=== PATIENT | female | born 1955 | race Caucasian/White ===

== ENCOUNTER → 2018-04-04 | Outpatient (CLI) | payer OTHER ==
[~2018-04-04] MED LIST: AZIT-1 PO; CALC-845 PO; CALC-852 PO; ESOM10SU2 PO; ESOM40CA42 PO; ESZ3PT PO; FERR325T24 PO; IBU200 PO; MAGN400C PO; MULT-820 PO; OMEG-11 PO; RANI-366 PO; SIMV-49 PO; SIMV10TA98 PO; [UNRECOGNIZED DRUG - CODE] PO; [UNRECOGNIZED DRUG - CODE] PO; [UNRECOGNIZED DRUG - SUPPLY]
--- NOTE | 2018-04-06 10:41 | RADIOLOGY IMAGING REPORT ---
[place] [facility] [place] NAME: ALBERTO CONROY : [id number] MR: [id number] V: [id number] EXAM DATE: [id number] ORDERING PHYSICIAN: CAROLE YIP TECHNOLOGIST: Tammie Negro PROCEDURE:BILATERAL DIAGNOSTIC DIGITAL MAMMOGRAM WITH CAD ASSISTED INTERPRETATION & 3D TOMOSYNTHESIS COMPARISON:Prior mammograms 09/30/17, 03/16/17, 08/30/16, 02/27/16, 02/12/16, 01/29/15 INDICATIONS:6 MONTH FOLLOW-UP FINDINGS: Mildly heterogeneous fibroglandular tissue is seen throughout the breasts. The parenchymal pattern has remained stable allowing for difference in mammographic technique & patient positioning. The small grouping of calcifications in the medial inferior portion of the Right breast appear much less prominent and appear to have coalesced into a microcalcification. There is no demonstration of malignant appearing mass, malignant appearing calcification or other secondary sign of malignancy in either breast. DIAGNOSTIC CATEGORY 2--BENIGN FINDING. RECOMMENDATIONS: ROUTINE MAMMOGRAM AND CLINICAL EVALUATION. IMPRESSION: BIRADS 2: Benign finding No significant abnormality is seen. Dictated by: Joan Marie M.D. on 04/04/2018 at 15:34 Transcribed by: CM on 04/05/2018 at 8:38 Approved by: Joan Marie M.D. on 04/06/2018 at 10:40 [facility]
== END ==
LOC: US 01:24
PROVIDERS: ATTEND Internal Medicine
DX: R92.1 Mammographic calcification found on diagnostic imaging of breast (principal)
CPT/HCPCS: 77062; 77066

== ENCOUNTER 2019-01-30 01:14 | Emergency (ER) | payer MEDICARE, OTHER ==
--- NOTE | 2019-01-30 01:39 | ER Report ---
History and Physical Time Seen By MD: 01:39 Hx. of Stated Complaint: PT REPORTS FEELING IRRITABLE TODAY. PT HAS BEEN CHECKIN BP AT HOME WITH HIGHEST BEING 158/106. HPI/ROS CHIEF COMPLAINT: Concerns about blood pressure HISTORY OF PRESENT ILLNESS: This is a 63-year-old female. She states that she felt irritable all day. Tonight could not relax. Tested her blood pressure several times and the bottom number was very high, in the 90s and over 100. Has mild headache. No chest pain. No shortness of breath. No nausea or vomiting. Normal bowel and bladder function. No vision changes. No dizziness or near syncope feeling. No musculoskeletal pain. Allergies: Coded Allergies: Penicillins (Verified Allergy, Severe, ANAPHYLAXIS, 01/30/19) Sulfa (Sulfonamide Antibiotics) (Verified Allergy, Intermediate, RASH, 01/30/19) Home Meds Active Scripts Lisinopril (LISINOPRIL) 10 Mg Tablet, 10 MG PO QDAY, #30 TAB 0 Refills Prov:JEMAL FERNANDES MD 01/30/19 Eszopiclone (LUNESTA) 3 Mg Tablet, 1 TAB PO HS PRN for sleep, #90 TAB 1 Refill Prov:CAROLE YIP MD 08/15/18 Simvastatin (SIMVASTATIN) 20 Mg Tablet, 1 TAB PO HS, #30 TAB 3 Refills Prov:CAROLE YIP MD 02/28/18 Reported Medications Cholecalciferol (Vitamin D3) (VITAMIN D3) 3,000 Unit Tablet, 1 TAB PO QDAY 08/09/17 [TAP appliance] No Conflict Check, HS sleep apnea 09/08/16 Ranitidine Hcl (ZANTAC) 150 Mg Tablet, 1 TAB PO QDAY PRN for acid reflux, TAB 02/04/16 [place]-3 Fatty Acids/Fish Oil (FISH OIL 1,000 MG CAPSULE) 1 Each Capsule, 1 CAP PO QDAY 01/28/15 Calcium Carbonate/Vitamin D3 (CALCIUM + VITAMIN D TABLET) 1 Each Tablet, 1 TAB PO QDAY 01/28/15 Multivitamins (Multivitamin) 1 Tab Tablet, 1 TAB PO QDAY 03/04/08 Discontinued Reported Medications Magnesium Oxide (MAGNESIUM) 400 Mg Capsule, 1 CAP PO QDAY, CAPSULE 02/23/18 Reviewed Nurses Notes: Yes Smoking Status: Former Smoker Exposure to Second Hand Smoke?: Yes Constitutional Vital Sign - Last 24 Hours 01/30/19 01/30/19 01/30/19 01/30/19 01:29 01:31 01:44 01:55 Temp 97.6 Pulse 81 85 Resp 16 B/P (MAP) 156/82 (106) 156/82 151/98 (115) Pulse Ox 94 91 O2 Delivery Room Air 01/30/19 01/30/19 01/30/19 01/30/19 01:59 02:00 02:10 02:14 Pulse 72 76 B/P (MAP) 140/103 (115) 149/105 (120) Pulse Ox 91 93 01/30/19 01/30/19 01/30/19 01/30/19 02:20 02:30 02:54 03:00 B/P (MAP) 127/94 (105) 142/101 (115) 149/103 (118) 155/86 (109) 01/30/19 01/30/19 01/30/19 01/30/19 03:14 03:30 03:44 03:59 Pulse 72 72 74 B/P (MAP) 155/103 (120) Pulse Ox 91 92 90 01/30/19 01/30/19 04:00 04:14 B/P (MAP) 153/110 (124) Pulse Ox 93 Physical Exam General Appearance: The patient is alert. No acute distress. Eyes: Pupils are equal, round. Reactive to light. No pallor, injection or icterus. Extraocular movements are intact. ENT: Mucous membranes are moist. Normal oral mucosa. Posterior oropharynx is normal. Normal nasal mucosa. Normal tympanic membranes and canals. Neck: Supple and non tender. No lymphadenopathy. Respiratory: Lungs are clear to auscultation. Cardiovascular: Regular rate and rhythm. No murmurs, gallops or rubs. Normal capillary refill. Gastrointestinal: Abdomen is soft and non tender. Nondistended. Normal active bowel sounds. Neurological: Alert and oriented x3. Cranial nerves II through XII show no acute deficits on my exam. No focal neurologic deficits in the extremities. Skin: Warm and dry. No rashes. Musculoskeletal: Extremities are nontender. No tenderness in palpation of the cervical, thoracic and lumbar spine. DIFFERENTIAL DIAGNOSIS: After history and physical exam, differential diagnosis was considered for elevated blood pressure with a mild headache. We'll check labs, EKG, x-ray and CT scan Medical Decision Making Data Points Result Diagram: 01/30/19 0227 01/30/197 Laboratory Hematology Test 01/30/19 02:27 01/30/19 03:25 Red Blood Count 5.41 M/uL (4.17-5.56) Mean Corpuscular Volume 89.9 fL (80.0-96.0) Mean Corpuscular Hemoglobin 30.2 pg (26.0-33.0) Mean Corpuscular Hemoglobin Concent 33.6 g/dL (32.0-36.0) Red Cell Distribution Width 13.1 % (11.5-14.5) Mean Platelet Volume 9.1 fL (7.2-11.1) Neutrophils (%) (Auto) 58.2 % (39.4-72.5) Lymphocytes (%) (Auto) 25.7 % (17.6-49.6) Monocytes (%) (Auto) 12.6 % (4.1-12.4) Eosinophils (%) (Auto) 2.7 % (0.4-6.7) Basophils (%) (Auto) 0.8 % (0.3-1.4) Nucleated RBC Relative Count (auto) 0.1 /100WBC Neutrophils # (Auto) 4.3 K/uL (2.0-7.4) Lymphocytes # (Auto) 1.9 K/uL (1.3-3.6) Monocytes # (Auto) 0.9 K/uL (0.3-1.0) Eosinophils # (Auto) 0.2 K/uL (0.0-0.5) Basophils # (Auto) 0.1 K/uL (0.0-0.1) Nucleated RBC Absolute Count (auto) 0.01 K/uL Sodium Level 141 mmol/L (137-145) Potassium Level 4.0 mmol/L (3.5-5.0) Chloride Level 103 mmol/L (98-107) Carbon Dioxide Level 28 mmol/L (22-31) Blood Urea Nitrogen 10 mg/dl (7-18) Creatinine 1.00 mg/dl (0.52-1.04) Glomerular Filtration Rate Calc 55.6 Random Glucose 96 mg/dl (75-110) Calcium Level 9.9 mg/dl (8.4-10.2) Total Bilirubin 0.5 mg/dl (0.2-1.3) Aspartate Amino Transf (AST/SGOT) 24 U/L (0-35) Alanine Aminotransferase (ALT/SGPT) 26 U/L (0-56) Alkaline Phosphatase 88 U/L (0-126) Troponin I < 0.012 ng/ml Total Protein 7.7 g/dl (6.3-8.2) Albumin 4.4 g/dl (3.5-5.0) Urine Color Yellow Urine Clarity Clear Urine pH 5.0 pH (4.8-9.5) Urine Specific [place] 1.012 Urine Protein Negative mg/dL (NEGATIVE) Urine Glucose (UA) Negative mg/dL (NEGATIVE) Urine Ketones Negative mg/dL (NEGATIVE) Urine Blood Negative (NEGATIVE) Urine Nitrite Negative (NEGATIVE) Urine Bilirubin Negative (NEGATIVE) Urine Urobilinogen Negative mg/dL (0.2-1.9) Urine Leukocyte Esterase Negative (NEGATIVE) Urine RBC <1 /HPF (0-2/HPF) Urine WBC <1 /HPF (0-5/HPF) Urine Squamous Epithelial Cells Few /LPF (</=FEW) Urine Bacteria Negative /HPF (NONE-FEW) Urine Mucus None /HPF (NONE-FEW) Chemistry Test 01/30/19 02:27 01/30/19 03:25 White Blood Count 7.4 k/uL (4.5-11.0) Red Blood Count 5.41 M/uL (4.17-5.56) Hemoglobin 16.3 g/dL (12.0-16.0) Hematocrit 48.6 % (34.0-47.0) Mean Corpuscular Volume 89.9 fL (80.0-96.0) Mean Corpuscular Hemoglobin 30.2 pg (26.0-33.0) Mean Corpuscular Hemoglobin Concent 33.6 g/dL (32.0-36.0) Red Cell Distribution Width 13.1 % (11.5-14.5) Platelet Count 237 K/uL (150-450) Mean Platelet Volume 9.1 fL (7.2-11.1) Neutrophils (%) (Auto) 58.2 % (39.4-72.5) Lymphocytes (%) (Auto) 25.7 % (17.6-49.6) Monocytes (%) (Auto) 12.6 % (4.1-12.4) Eosinophils (%) (Auto) 2.7 % (0.4-6.7) Basophils (%) (Auto) 0.8 % (0.3-1.4) Nucleated RBC Relative Count (auto) 0.1 /100WBC Neutrophils # (Auto) 4.3 K/uL (2.0-7.4) Lymphocytes # (Auto) 1.9 K/uL (1.3-3.6) Monocytes # (Auto) 0.9 K/uL (0.3-1.0) Eosinophils # (Auto) 0.2 K/uL (0.0-0.5) Basophils # (Auto) 0.1 K/uL (0.0-0.1) Nucleated RBC Absolute Count (auto) 0.01 K/uL Glomerular Filtration Rate Calc 55.6 Calcium Level 9.9 mg/dl (8.4-10.2) Total Bilirubin 0.5 mg/dl (0.2-1.3) Aspartate Amino Transf (AST/SGOT) 24 U/L (0-35) Alanine Aminotransferase (ALT/SGPT) 26 U/L (0-56) Alkaline Phosphatase 88 U/L (0-126) Troponin I < 0.012 ng/ml Total Protein 7.7 g/dl (6.3-8.2) Albumin 4.4 g/dl (3.5-5.0) Urine Color Yellow Urine Clarity Clear Urine pH 5.0 pH (4.8-9.5) Urine Specific [place] 1.012 Urine Protein Negative mg/dL (NEGATIVE) Urine Glucose (UA) Negative mg/dL (NEGATIVE) Urine Ketones Negative mg/dL (NEGATIVE) Urine Blood Negative (NEGATIVE) Urine Nitrite Negative (NEGATIVE) Urine Bilirubin Negative (NEGATIVE) Urine Urobilinogen Negative mg/dL (0.2-1.9) Urine Leukocyte Esterase Negative (NEGATIVE) Urine RBC <1 /HPF (0-2/HPF) Urine WBC <1 /HPF (0-5/HPF) Urine Squamous Epithelial Cells Few /LPF (</=FEW) Urine Bacteria Negative /HPF (NONE-FEW) Urine Mucus None /HPF (NONE-FEW) Urinalysis Test 01/30/19 03:25 Urine Color Yellow Urine Clarity Clear Urine pH 5.0 pH (4.8-9.5) Urine Specific [place] 1.012 Urine Protein Negative mg/dL (NEGATIVE) Urine Glucose (UA) Negative mg/dL (NEGATIVE) Urine Ketones Negative mg/dL (NEGATIVE) Urine Blood Negative (NEGATIVE) Urine Nitrite Negative (NEGATIVE) Urine Bilirubin Negative (NEGATIVE) Urine Urobilinogen Negative mg/dL (0.2-1.9) Urine Leukocyte Esterase Negative (NEGATIVE) Urine RBC <1 /HPF (0-2/HPF) Urine WBC <1 /HPF (0-5/HPF) Urine Squamous Epithelial Cells Few /LPF (</=FEW) Urine Bacteria Negative /HPF (NONE-FEW) Urine Mucus None /HPF (NONE-FEW) EKG/Imaging Imaging Head CT scan without contrast HISTORY: Headache COMPARISONS: None TECHNIQUE: Non-contrast head CT was performed with sagittal and coronal reformations. One of the following dose optimization techniques was utilized in the performance of this exam: automated exposure control; adjustment of the mA and/or kV according to patient size; or use of iterative reconstruction techniq ue. Specific details can be referenced in the facility's radiology CT exam operational policy. FINDINGS: There is no intracranial hemorrhage, hydrocephalus or midline shift. The basal cisterns, ruff-white differentiation, and convexity sulci are maintained. Normal orbital soft tissues. Vascular calcifications noted. Left basal ganglia punctate chronic calcification. Clear mastoid air cells, clear paranasal sinuses and normal osseous structures. IMPRESSION: No acute intracranial abnormality. Report Dictated By: Rob Marroquin MD at 01/30/2019 2:57 AM CHEST PA LAT INDICATION: Headache, chest pressure COMPARISON: None available FINDINGS: The cardiac silhouette is normal in size. No pneumothorax. Small amount of epicardial fat the left lower lung adjacent to the cardiac apex. Clear lungs. Slight convexity left thoracic scoliosis. No acute osseous abnormality. No pleural fluid. IMPRESSION: No acute finding. Report Dictated By: Rob Marroquin MD at 01/30/2019 3:18 AM ED Course/Re-evaluation ED Course Heart monitor negative. CT scan of head negative. Chest x-ray negative. Labs unremarkable. Repeat blood pressures show consistent diastolic 9200. Recommended starting lisinopril and she will follow-up with primary care for reevaluation. Decision to Disposition Date: Jan 30, 2019 Decision to Disposition Time: 04:05 Depart Departure Latest Vital Signs Vital Signs Date Time Temp Pulse Resp B/P (MAP) Pulse Ox O2 Delivery O2 Flow Rate FiO2 01/30/19 04:14 93 01/30/19 04:00 153/110 (124) 01/30/19 03:59 74 01/30/19 01:31 97.6 16 Room Air Impression: Primary Impression: Hypertension Condition: Improved Disposition: HOME OR SELF-CARE Referrals: JOSE PEDRAZA MD (PCP) New Scripts Lisinopril (LISINOPRIL) 10 Mg Tablet 10 MG PO QDAY, #30 TAB 0 Refills Prov: JEMAL FERNANDES MD 01/30/19 Patient Instructions: Hypertension (ED) Additional Instructions: We recommend starting a low dose of a blood pressure medicine called Lisinopril. Lisinopril 10mg once a day in the morning. Make a follow-up appointment with primary care in the next couple of weeks and recheck blood pressures and labs. Keep track of your blood pressure on a daily basis and bring the readings to your primary care provider. Problem Qualifiers Primary Impression: Hypertension Hypertension type: essential hypertension Qualified Codes: I10 - Essential (primary) hypertension JEMAL FERNANDES MD Jan 30, 2019 01:39
[2019-01-30 02:38] LABS: PLATELET COUNT, AUTOMATED 237 K/uL (150-450)
--- NOTE | 2019-01-30 03:21 | RADIOLOGY IMAGING REPORT ---
FACILITY: [facility] - [place] PATIENT NAME: Muriel Shetty : 1955 MR: [id number] V: [id number] EXAM DATE: ORDERING PHYSICIAN: JEMAL FERNANDES TECHNOLOGIST: Location: [facility] - [place] Patient: Muriel Shetty : 1955 Visit/Account:[id number] Date of Sevice: 01/30/[address] scan without contrast HISTORY: Headache COMPARISONS: None TECHNIQUE: Non-contrast head CT was performed with sagittal and coronal reformations. One of the following dose optimization techniques was utilized in the performance of this exam: autom ated exposure control; adjustment of the mA and/or kV according to patient size; or use of iterative reconstruction technique. Specific details can be referenced in the facility's radiology CT exam ope rational policy. FINDINGS: There is no intracranial hemorrhage, hydrocephalus or midline shift. The basal cisterns, ruff-white differentiation, and convexity sulci are maintained. Normal orbital soft tissues. Vascular calcificat ions noted. Left basal ganglia punctate chronic calcification. Clear mastoid air cells, clear paranasal sinuses and normal osseous structures. IMPRESSION: No acute intracranial abnormality. Report Dictated By: Rob Marroquin MD at 01/30/2019 2:57 AM Report E-Signed By: Rob Marroquin MD at 01/30/2019 3:02 AM WSN:[id number]
--- NOTE | 2019-01-30 03:24 | RADIOLOGY IMAGING REPORT ---
FACILITY: [facility] - [place] PATIENT NAME: Muriel Shetty : 1955 MR: [id number] V: [id number] EXAM DATE: ORDERING PHYSICIAN: JEMAL FERNANDES TECHNOLOGIST: Location: [facility] Patient: Muriel Shetty : 1955 Visit/Account:[id number] Date of Sevice: 01/30/2019 CHEST PA LAT INDICATION: Headache, chest pressure COMPARISON: None available FINDINGS: The cardiac silhouette is normal in size. No pneumothorax. Small amount of epicardial fat the left lower lung adjacent to the cardiac apex. Clear lungs. Slight convexity left thoracic scolio sis. No acute osseous abnormality. No pleural fluid. IMPRESSION: No acute finding. Report Dictated By: Rob Marroquin MD at 01/30/2019 3:18 AM Report E-Signed By: Rob Marroquin MD at 01/30/2019 3:20 AM WSN:[id number]
[2019-01-30 04:00] VITALS: BP 153/110
[2019-01-30] MEDS ORDERED: LISINOPRIL 10 MG TAB PO ONE (04:05)
[2019-01-30] MEDS ORDERED: LISI-362 PO (04:06)
== END 2019-01-30 04:35 | disposition home or self-care (01) ==
LOC: ER 01:54
DX: I10 Essential (primary) hypertension (principal)
CPT/HCPCS: 70450; 71046; 81001; 84484; 85025; 99284; A9270; 82040; 82247; 82310; 82374; 82435; 82565; 82947; 84075; 84132; 84155; 84295; 84450; 84460; 84520

== ENCOUNTER → 2019-05-04 | Outpatient (CLI) | payer MEDICARE, OTHER ==
[~2019-05-04] MED LIST changes: +LISI-362 PO; -RANI-366 PO; +RANI-54 PO
--- NOTE | 2019-05-07 16:34 | RADIOLOGY IMAGING REPORT ---
FACILITY: [facility] PATIENT NAME: ALBERTO CONROY : [id number] MR: [id number] V: [id number] EXAM DATE: ORDERING PHYSICIAN: JORGE MANRIQUE TECHNOLOGIST: Saumya Narvaez PROCEDURE: BILATERAL DIGITAL SCREENING MAMMOGRAM WITH CAD ASSISTED INTERPRETATION & 3D TOMOSYNTHESIS REASON FOR STUDY: Screening. COMPARISON: 04/04/18, 09/30/17, 03/16/17, 08/30/16, 02/12/16. VIEWS OBTAINED: 2D & 3D full field CC & MLO. BREAST DENSITY: The breasts have scattered fibroglandular parenchymal densities. MAMMOGRAM FINDINGS: There are no mammographic findings concerning for malignancy. No significant interval change. IMPRESSION: BIRADS 1: Negative. DIAGNOSTIC CATEGORY 1--NEGATIVE. RECOMMENDATIONS: ROUTINE MAMMOGRAM AND CLINICAL EVALUATION. Dictated by: Cortez Acevedo on 05/07/2019 at 9:17 Transcribed by: CM on 05/07/2019 at 15:18 Approved by: Cortez Acevedo on 05/07/2019 at 16:31 [facility]
== END ==
LOC: MAMO 04:10
PROVIDERS: ATTEND Nurse Practitioner Family
DX: Z12.31 Encounter for screening mammogram for malignant neoplasm of breast (principal); Z80.3 Family history of malignant neoplasm of breast
CPT/HCPCS: 77063; 77067